=== PATIENT | female | born 1980 | race Caucasian/White ===

== ENCOUNTER → 2022-01-11 | Emergency (ER) | payer BC ==
[~2022-01-11] MED LIST: CEPH-510 PO; HYDR-4798 PO; LISD70CA PO; NITR-87 PO; OSEL75CA5 PO
== END | disposition left against medical advice (07) ==
LOC: ER 01:00
DX: R05.9 Cough, unspecified (principal); Z53.21 Procedure and treatment not carried out due to patient leaving prior to being seen by health care provider